=== PATIENT | female | born 1960 | race Caucasian/White ===

== ENCOUNTER 2017-11-11 05:35 | Inpatient (IN) | payer OTHER ==
[2017-11-11] MEDS ORDERED: PROPOFOL 200 MG INJ (07:00)
[2017-11-11] MEDS ORDERED: ACETAMINOPHEN 1000 MG/100 ML IVPB (07:00)
[2017-11-11] MEDS ORDERED: HYDROmorphONE 1 MG/5 ML IV SYRINGE IV ×3 (07:30)
[2017-11-11] MEDS ORDERED: DIPHENHYDRAMINE 50 MG INJ IV (07:30)
[2017-11-11] MEDS ORDERED: hydrALAzine 20 MG INJ IV (07:30)
[2017-11-11] MEDS ORDERED: LABETALOL HCL 20MG INJ IV (07:30)
[2017-11-11] MEDS ORDERED: ETOMIDATE 20 MG INJ (07:47)
[2017-11-11] MEDS ORDERED: METOCLOPRAMIDE 10 MG INJ (07:47)
[2017-11-11] MEDS ORDERED: ROPIVACAINE 0.5 % 30 ML VIAL (07:47)
[2017-11-11] MEDS ORDERED: MIDAZOLAM 1 MG/ML 2 ML INJ (07:47)
[2017-11-11] MEDS ORDERED: ONDANSETRON 4 MG INJ (07:47)
[2017-11-11] MEDS ORDERED: CEFAZOLIN 1 GM INJ (07:50)
[2017-11-11] MEDS ORDERED: FENTAnyl 50 MCG/ML VIAL (07:50)
[2017-11-11] MEDS: POLYMYXIN/BACITRACIN 1L IRRIG (09:05)
[2017-11-11] MEDS: MEPERIDINE 25 MG INJ IV (11:37)
[2017-11-11] MEDS ORDERED: MECLIZINE 25 MG TAB PO (13:00)
[2017-11-11] MEDS: GABAPENTIN 100 MG CAP PO ×2 (13:00→20:37)
[2017-11-11] MEDS ORDERED: ONDANSETRON 4 MG TAB PO (13:00)
[2017-11-11] MEDS ORDERED: NACL 0.9% 3 ML SYG IV (13:00)
[2017-11-11] MEDS ORDERED: ACETAMINOPHEN 325 MG TAB PO (13:00)
[2017-11-11] MEDS ORDERED: DOCUSATE SODIUM 100 MG CAP PO (13:00)
[2017-11-11] MEDS ORDERED: ZOLPIDEM 5 MG TAB PO (13:00)
[2017-11-11] MEDS ORDERED: DEXTROSE 50% 50 ML SYRINGE IV ×2 (13:30)
[2017-11-11] MEDS ORDERED: GLUCAGON 1 MG INJ IM (13:30)
[2017-11-11] MEDS ORDERED: GLUCOSE GEL 15 GRAM TUBE BUCCAL (13:30)
[2017-11-11] MEDS ORDERED: GLUCOSE GEL 15 GRAM TUBE PO ×2 (13:30)
[2017-11-11 16:56] LABS: ADD UMIC NO; UR ASCORBIC ACID NEGATIVE (NEGATIVE); UR BILIRUBIN (Dip) NEGATIVE (NEGATIVE); UR BLOOD (Dip) NEGATIVE (NEGATIVE); UR CLARITY SLIGHTLY CLOUDY (CLEAR); UR COLOR YELLOW (YELLOW); UR GLUCOSE (Dip) NEGATIVE (NEGATIVE); UR KETONES (Dip) 1+ mg/dL (NEGATIVE); UR LEUKOCYTE ESTERASE (Dip) NEGATIVE Leu/ul (NEGATIVE); UR MUCUS FEW /HPF (NONE SEEN); UR NITRITE (Dip) NEGATIVE (NEGATIVE); UR RBC 0 /HPF (0-5); UR SPECIFIC GRAVITY (Dip) 1.025 (1.003-1.030); UR SQUAMOUS EPITHELIAL CELL FEW /HPF (FEW); UR TOTAL PROTEIN (Dip) NEGATIVE (NEGATIVE); UR UROBILINOGEN (Dip) NEGATIVE (NEGATIVE); UR WBC 2 /HPF (0-5)
[2017-11-11] MEDS: metFORMIN 500 MG TAB PO (17:51)
[2017-11-11] MEDS: ACCU-CHEK XX ×2 (17:51→20:38)
[2017-11-11] MEDS: ATORVASTATIN 20 MG TAB PO (20:27)
[2017-11-11] MEDS: LOSARTAN 50 MG TAB PO (20:30)
[2017-11-11] MEDS: traZODone 100 MG TAB PO (20:36)
[2017-11-11] MEDS: FAMOTIDINE 20 MG TAB PO (20:38)
[2017-11-12] MEDS: HYDROCODONE/APAP (7.5/325) TAB PO ×2 (04:56→17:59)
[2017-11-12 05:08] LABS: WHITE BLOOD COUNT 10.2 10^3/ul (4.8-10.8)
[2017-11-12 05:08] LABS: ADD MAN DIFF? NO; BASOPHILS % 0.4 % (0.0-2.0); EOSINOPHILS % 0.3 % (0.0-7.0); HEMATOCRIT 37.4 % (37.0-47.0); HEMOGLOBIN 12.1 g/dl (12.0-16.0); LYMPHOCYTES # 2.2 10^3/ul (0.8-2.9); LYMPHOCYTES % 21.8 % (15.0-51.0); MEAN CORPUSCULAR HEMOGLOBIN 28.9 pg (29.0-33.0); MEAN CORPUSCULAR HGB CONC 32.4 g/dl (32.0-37.0); MEAN CORPUSCULAR VOLUME 89.3 fl (82.0-101.0); MONOCYTE # 1.2 10^3/ul (0.3-0.9); MONOCYTES % 11.9 % (0.0-11.0); NEUTROPHIL # 6.7 10^3/ul (1.6-7.5); NEUTROPHILS % 65.3 % (39.0-77.0); PLATELET COUNT 249 10^3/UL (140-415); RED BLOOD COUNT 4.19 10^6/ul (4.20-5.40); RED CELL DISTRIBUTION WIDTH 12.6 % (11.5-14.5)
[2017-11-12 05:27] LABS: HEMOGLOBIN A1C 5.7 % (0-5.9)
[2017-11-12 05:43] LABS: ALANINE AMINOTRANSFERASE 22 IU/L (13-69); ALBUMIN 3.6 g/dl (3.3-4.9); ALBUMIN/GLOBULIN RATIO 1.24; ALKALINE PHOSPHATASE 79 IU/L (42-121); ANION GAP 10 (8-16); ASPARTATE AMINO TRANSFERASE 24 IU/L (15-46); BILIRUBIN,INDIRECT 0.8 mg/dl (0-1.1); BILIRUBIN,TOTAL 0.8 mg/dl (0.2-1.3); BLOOD UREA NITROGEN 14 mg/dl (7-20); CALCIUM 8.7 mg/dl (8.4-10.2); CARBON DIOXIDE 25 mmol/L (21-31); CHLORIDE 107 mmol/L (97-110); CREATININE 0.88 mg/dl (0.44-1.00); GLUCOSE 113 mg/dl (70-220); POTASSIUM 4.1 mmol/L (3.5-5.1); SODIUM 138 mmol/L (135-144); TOTAL PROTEIN 6.5 g/dl (6.1-8.1)
[2017-11-12] MEDS: ACCU-CHEK XX ×4 (07:20→21:00)
[2017-11-12] MEDS: metFORMIN 500 MG TAB PO ×2 (09:10→18:00)
[2017-11-12] MEDS: FAMOTIDINE 20 MG TAB PO ×2 (09:10→21:00)
[2017-11-12] MEDS: DULOXETINE 30 MG CAP DR PO (09:10)
[2017-11-12] MEDS: GABAPENTIN 100 MG CAP PO ×3 (09:10→21:10)
[2017-11-12] MEDS: LOSARTAN 50 MG TAB PO ×2 (09:11→21:10)
[2017-11-12] MEDS: traZODone 100 MG TAB PO (21:09)
[2017-11-12] MEDS: ATORVASTATIN 20 MG TAB PO (21:09)
[2017-11-13] MEDS: ACCU-CHEK XX ×2 (07:20→11:10)
[2017-11-13] MEDS: metFORMIN 500 MG TAB PO (08:41)
[2017-11-13] MEDS: GABAPENTIN 100 MG CAP PO ×2 (08:42→13:48)
[2017-11-13] MEDS: LOSARTAN 50 MG TAB PO (08:42)
[2017-11-13] MEDS: FAMOTIDINE 20 MG TAB PO (08:42)
[2017-11-13] MEDS: DULOXETINE 30 MG CAP DR PO (08:42)
== END 2017-11-13 16:00 | disposition home or self-care (01) | DRG 469 ==
LOC: REC 05:35 → MS1 12:32
PROVIDERS: Podiatrist Foot & Ankle Surgery
PROC: 0SRF0JZ Replacement of Right Ankle Joint with Synthetic Substitute, Open Approach (ICD-10-PCS; principal; 2017-11-11 07:30)
DX: M19.071 Primary osteoarthritis, right ankle and foot (principal); Z68.41 Body mass index [BMI] 40.0-44.9, adult; I10 Essential (primary) hypertension; E66.01 Morbid (severe) obesity due to excess calories; E11.42 Type 2 diabetes mellitus with diabetic polyneuropathy; E78.5 Hyperlipidemia, unspecified; I83.93 Asymptomatic varicose veins of bilateral lower extremities; Z86.73 Personal history of transient ischemic attack (TIA), and cerebral infarction without residual deficits
CPT/HCPCS: 73610-RT; 80053; 81001; 81003; 82962; 83036; 85025; 88304; 88311; 97116; 97161; 97530; 97542